=== PATIENT | male | born 1950 | race African-American/Black ===

== ENCOUNTER 2016-06-20 10:08 | Inpatient (IN) | payer MEDICARE, OTHER ==
[2016-06-20] VITALS (8 sets, daily range): BP systolic 130–159; BP diastolic 72–90; PULSE 62–93; RESP 15–20; TEMP 98.3; O2SAT 95–100
[~2016-06-20] VITALS: Ht 162.6 cm; Wt 55.0 kg
[~2016-06-20 10:08] MED LIST: ASPI81TA81; AZIT250T3 PO; ECOT81TA2 PO; PRED-503 PO; VENTAER INH
--- NOTE | 2016-06-20 11:29 | PD ---
HPI Chief Complaint: Neuro Symptoms/ Deficits Time Seen by Provider: 11:18 Travel History International Travel<30 days: No Contact w/Intl Traveler<30days: No Traveled to known affect area: No History of Present Illness HPI 65-year-old male with history of CVA 2, COPD presents by private vehicle with his daughter for evaluation. The daughter reports that the patient has been complaining that for the past 2 weeks he has had unsteady gait, diplopia in the right eye, some right-sided facial drooping. Specifically daughter says that he cannot seem to smile as symmetrical as usual. The daughter reports that she last saw him 2 weeks ago and he was at his baseline. She went to his prison today and found like this. He says that symptoms started 2 weeks ago. 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 He denies any headache, chest pain or shortness of breath, nausea or vomiting, abdominal pain, fevers or chills. His primary care physician is Dr. Perez. No other complaints. PFSH Past Medical History Hx Anticoagulant Therapy: Yes (81 MG ASA) Asthma: Yes Blood Disorders: No Anxiety: No Depression: No Heart Rhythm Problems: No Cancer: No Cardiovascular Problems: Yes High Cholesterol: No Chemotherapy: No Chest Pain: No Congestive Heart Failure: No COPD: No Cerebrovascular Accident: Yes (x2) Diminished Hearing: No Endocrine: No Gastrointestinal Disorders: No Genitourinary: No Hypertension: Yes Immune Disorder: No Musculoskeletal: No Neurologic: Yes (CVA) Psychiatric: No Reproductive: No Respiratory: Yes (ASTHMA) Radiation Therapy: No Sleep Apnea: No Thyroid Disease: No Tetanus Vaccination: Unknown ?: Not Past Surgical History Abdominal Surgery: Yes (HERNIA REPAIR) AICD: No Arteriovenous Shunt: No Insulin Pump: No Joint Replacement: No Pacemaker: No Other Surgery: Yes Social History Alcohol Use: No Tobacco Use: Yes Substance Use: No Allergies-Medications (Allergen,Severity, Reaction): Coded Allergies: EAR DROPS (Verified Allergy, Severe, RASH, 09/04/15) Reported Meds & Prescriptions Reported Meds & Active Scripts Active Ventolin Hfa 18 GM Inh (Albuterol Sulfate) 90 Mcg/Act Aer 2 Puff INH Q4-6H PRN Reported Multiple Vitamin 1 Tab 1 Tab PO DAILY Lisinopril 10 Mg Tab 10 Mg PO DAILY Aspirin 325 Mg Tab 325 Mg PO DAILY Review of Systems Except as stated in HPI: all other systems reviewed are Neg Physical Exam Narrative GENERAL: Well-developed well-nourished male in no acute distress alert and oriented SKIN: Warm and dry. HEAD: Atraumatic. Normocephalic. EYES: Pupils equal and round reactive to light extraocular muscles are intact. No scleral icterus. No injection or drainage. ENT: No nasal bleeding or discharge. Mucous membranes pink and moist. NECK: Trachea midline. No JVD. CARDIOVASCULAR: Regular rate and rhythm. No murmur appreciated. RESPIRATORY: No accessory muscle use. Clear to auscultation. Breath sounds equal bilaterally. GASTROINTESTINAL: Abdomen soft, non-tender, nondistended. Hepatic and splenic margins not palpable. MUSCULOSKELETAL: No obvious deformities. No clubbing. No cyanosis. No edema. NEUROLOGICAL: Awake and alert. Some facial asymmetry when smiling with some drooping on the right side, flattening of the nasolabial folds. No upper or lower extremity drift. Normal heel to kidd. The patient is able to stand with some assistance. He is unable to take more than one step without assistance. 4 out of 5 muscle strength in the right upper and lower extremity. 5 out of 5 muscle strength in the left upper and lower extremity. PSYCHIATRIC: Appropriate mood and affect; insight and judgment normal. Data Data Last Documented VS Vital Signs Date Time Temp Pulse Resp B/P Pulse Ox O2 Delivery O2 Flow Rate FiO2 06/20/16 12:15 66 15 130/72 100 06/20/16 11:15 Room Air 06/20/16 10:24 98.3 Orders Electrocardiogram (06/20/16 11:22) Prothrombin Time / Inr (Pt) (06/20/16 11:22) Act Partial Throm Time (Ptt) (06/20/16 11:22) Complete Blood Count With Diff (06/20/16 11:22) Comprehensive Metabolic Panel (06/20/16 11:22) Creatine Kinase (Cpk) (06/20/16 11:22) Troponin I (06/20/16 11:22) Ct Brain W/O Iv Contrast(Rout) (06/20/16 11:22) Ecg Monitoring (06/20/16 11:22) Iv Access Insert/Monitor (06/20/16 11:22) Admit Order (Ed Use Only) (06/20/16 13:04) Labs Laboratory Tests Test 06/20/16 11:27 White Blood Count 7.0 TH/MM3 Red Blood Count 4.49 MIL/MM3 Hemoglobin 14.9 GM/DL Hematocrit 43.1 % Mean Corpuscular Volume 96.1 FL Mean Corpuscular Hemoglobin 33.2 PG Mean Corpuscular Hemoglobin 34.6 % Concent Red Cell Distribution Width 13.5 % Platelet Count 175 TH/MM3 Mean Platelet Volume 8.2 FL Neutrophils (%) (Auto) 59.8 % Lymphocytes (%) (Auto) 20.3 % Monocytes (%) (Auto) 18.1 % Eosinophils (%) (Auto) 1.0 % Basophils (%) (Auto) 0.8 % Neutrophils # (Auto) 4.2 TH/MM3 Lymphocytes # (Auto) 1.4 TH/MM3 Monocytes # (Auto) 1.3 TH/MM3 Eosinophils # (Auto) 0.1 TH/MM3 Basophils # (Auto) 0.1 TH/MM3 CBC Comment DIFF FINAL Differential Comment Prothrombin Time 11.6 SEC Prothromb Time International 1.0 RATIO Ratio Activated Partial 29.2 SEC Thromboplast Time Sodium Level 139 MEQ/L Potassium Level 4.1 MEQ/L Chloride Level 102 MEQ/L Carbon Dioxide Level 27.8 MEQ/L Anion Gap 9 MEQ/L Blood Urea Nitrogen 17 MG/DL Creatinine 0.95 MG/DL Estimat Glomerular Filtration 96 ML/MIN Rate Random Glucose 92 MG/DL Calcium Level 8.6 MG/DL Total Bilirubin 0.7 MG/DL Aspartate Amino Transf 110 U/L (AST/SGOT) Alanine Aminotransferase 118 U/L (ALT/SGPT) Alkaline Phosphatase 95 U/L Total Creatine Kinase 186 U/L Troponin I LESS THAN 0.02 NG/ML Total Protein 8.0 GM/DL Albumin 3.4 GM/DL [facility] Medical Decision Making Medical Screen Exam Complete: Yes Emergency Medical Condition: Yes Medical Record Reviewed: Yes Interpretation(s) EKG sinus rhythm CT brain reveals old bilateral infarcts including basal ganglion right cerebellum. Chronic small vessel vasculopathy. CBC unremarkable CMP AST 110, ALT 118 Differential Diagnosis CVA, Young's palsy, hypoglycemia, electrolyte abnormality Narrative Course 65-year-old male with history of CVA in the past presents for evaluation of 2 weeks of unsteady gait, some double vision in the right eye, some right-sided facial droop. On examination he appears to have some flattening of the right nasolabial fold. He has 4-5 muscle strength in the right upper and lower extremity which is chronic. He is able to stand up independently however he is only able to walk about one-step without assistance. He says that he usually gets around in a scooter at his prison and he is able to walk wall holding onto the scooter. Examined with my attending agrees to plan of care. The patient will be admitted for observation given his new neurologic deficits. Diagnosis Primary Impression: Unsteady gait Additional Impression: Diplopia Admitting Information Admitting Physician Requests: Observation Liam Avila Jun 20, 2016 11:28
[2016-06-20 11:39] LABS: AUTOMATED NEUTROPHIL # 4.2 TH/MM3 (1.8-7.7); BASOPHIL # 0.1 TH/MM3 (0-0.2); BASOPHIL % 0.8 % (0.0-2.0); EOSINOPHIL # 0.1 TH/MM3 (0-0.4); HEMATOCRIT 43.1 % (39.0-51.0); HEMO FLAGS DIFF FINAL; LYMPH % 20.3 % (9.0-44.0); LYMPHOCYTE # 1.4 TH/MM3 (1.0-4.8); MEAN CELL VOLUME 96.1 FL (80.0-100.0); MEAN CORPUSCULAR HEMOGLOBIN 33.2 PG (27.0-34.0); MEAN CORPUSCULAR HGB CONC 34.6 % (32.0-36.0); MONO % 18.1 % (0.0-8.0); NEUT % 59.8 % (16.0-70.0); PLATELET COUNT 175 TH/MM3 (150-450); RED BLOOD COUNT 4.49 MIL/MM3 (4.50-5.90); RED CELL DISTRIBUTION WIDTH 13.5 % (11.6-17.2)
[2016-06-20 11:46] LABS: APTT (PATIENT) 29.2 SEC (24.3-30.1); PROTHROMBIN TIME - PATIENT 11.6 SEC (9.8-11.6)
[2016-06-20] MEDS ORDERED: ASPI325T PO (11:57)
[2016-06-20] MEDS ORDERED: LISI10TA3 PO (11:57)
[2016-06-20] MEDS ORDERED: MULTTAB67 PO (11:57)
[2016-06-20 12:02] LABS: ANION GAP 9 MEQ/L (5-15); AST (GOT) 110 U/L (15-37); BICARBONATE 27.8 MEQ/L (21.0-32.0); BLOOD UREA NITROGEN 17 MG/DL (7-18); CHLORIDE 102 MEQ/L (98-107); GLOMERULAR FILTRATION RATE 96 ML/MIN (>89); POTASSIUM 4.1 MEQ/L (3.5-5.1); SODIUM (NA) 139 MEQ/L (136-145)
--- NOTE | 2016-06-20 12:04 | RADRPT ---
EXAM DATE/TIME: 06/20/2016 11:38 [facility] COMPARISON: MRI BRAIN W/O CONTRAST, September 04, 2015, 15:55. INDICATIONS : Right facial droop for two weeks. RADIATION DOSE: 56.35 CTDIvol (mGy) MEDICAL HISTORY : Cardiovascular disease. Cerebrovascular disease. Hypertension. SURGICAL HISTORY : Hernia repair ENCOUNTER: Initial ACUITY: 2 weeks PAIN SCALE: 4/10 LOCATION: cranial TECHNIQUE: Multiple contiguous axial images were obtained of the head. Using automated exposure control and adj ustment of the mA and/or kV according to patient size, radiation dose was kept as low as reasonably a chievable to obtain optimal diagnostic quality images. FINDINGS: CEREBRUM: The ventricles are normal for age. Scattered areas of low attenuation in the periventricular white m atter. There are old bilateral basal ganglia lacunar infarcts. Old right cerebellar infarct. No evide nce of midline shift, mass lesion, hemorrhage or acute infarction. No extra-axial fluid collections are seen. POSTERIOR FOSSA: Right brainstem infarct, old. The 4th ventricle is midline. The cerebellopontine angle is unremarka ble. EXTRACRANIAL: The visualized portion of the orbits is intact. SKULL: The calvaria is intact. No evidence of skull fracture. CONCLUSION: 1. Old bilateral infarcts including basal ganglia and right cerebellum. 2. Chronic ischemic small vessel vasculopathy. Nelson Vargas MD on June 20, 2016 at 11:59 Board Certified Radiologist. This report was verified electronically.
[2016-06-20 12:06] LABS: ALKALINE PHOSPHATASE 95 U/L (45-117); ALT (GPT) 118 U/L (12-78); CREATINE KINASE 186 U/L (39-308); TOTAL BILIRUBIN ADULT 0.7 MG/DL (0.2-1.0)
[2016-06-20] MEDS ORDERED: ALBUTEROL SULFATE 90 MCG/ACT HFA 8 GM INHALER INH PRN (13:15)
--- NOTE | 2016-06-20 13:20 | HHI.HP ---
[facility] Yunior Perez MD Admission Diagnosis unsteady gait, diplopia, facial froop Diagnoses: (1) Unsteady gait Diagnosis: Principal (2) Diplopia Diagnosis: Principal Chief Complaint: ' I feel weak'. Travel History International Travel<30 Days: No Contact w/Intl Traveler <30 Da: No Traveled to Known Affected Are: No History of Present Illness patient is a 65 y/o male with history of CVA, hypertension and COPD who was brought from senior living because of right sided weakness and diplopia. he says that ' his right eye has been bothering him for the past two weeks'. he's complaining of right sided diplopia long with right sided weakness of the lower extremity. he denies any chest pain or sob. Review of Systems Constitutional: COMPLAINS OF: Fatigue, DENIES: Fever, Weight loss, Chills, Night Sweats Eyes: COMPLAINS OF: Diplopia, DENIES: Blurred vision, Vision loss, Double Vision Ears, nose, mouth, throat: DENIES: Tinnitus, Vertigo, Throat pain, Epistaxis Respiratory: DENIES: Apneas, Cough, Snoring, Wheezing, Hemoptysis, Sputum production, Shortness of breath Cardiovascular: DENIES: Chest pain, Palpitations, Syncope, Dyspnea on Exertion , PND, Lower Extremity Edema, Orthopnea, Claudication Gastrointestinal: DENIES: Abdominal pain, Black stools, Bloody stools, Constipation, Diarrhea, Nausea, Vomiting, Difficulty Swallowing, Anorexia Genitourinary: DENIES: Urinary frequency, Urgency, Hematuria, Dysuria Musculoskeletal: DENIES: Joint pain, Muscle aches, Stiffness, Joint Swelling Integumentary: DENIES: Rash Neurologic: COMPLAINS OF: Abnormal gait, DENIES: Headache, Localized weakness , Paresthesias, Seizures, Speech Problems, Tremor, Poor Balance Psychiatric: DENIES: Anxiety, Confusion, Mood changes, Depression, Hallucinations, Agitation, Suicidal Ideation, Homicidal Ideation, Delusions Past Family Social History Past Medical History CVA hypertension COPD Past Surgical History hernia repair Reported Medications Multiple Vitamin 1 Tab 1 Tab PO DAILY Lisinopril 10 Mg Tab 10 Mg PO DAILY Aspirin 325 Mg Tab 325 Mg PO DAILY Allergies: Coded Allergies: EAR DROPS (Verified Allergy, Severe, RASH, 09/04/15) Social History smokes a few cigarettes a day- senior living resident. Physical Exam Vital Signs Vital Signs Date Time Temp Pulse Resp B/P Pulse Ox O2 Delivery O2 Flow Rate FiO2 06/20/16 12:15 66 15 130/72 100 06/20/16 11:16 79 16 133/90 99 06/20/16 11:15 75 16 99 Room Air 06/20/16 10:24 98.3 93 16 157/84 95 Physical Exam GENERAL: in no apparent distress. SKIN: No rashes, ecchymoses or lesions. Cool and dry. HEAD: Atraumatic. Normocephalic. No temporal or scalp tenderness. EYES: Pupils equal round and reactive. Extraocular motions intact. No scleral icterus. No injection or drainage. ENT: Nose without bleeding, purulent drainage or septal hematoma. Throat without erythema, tonsillar hypertrophy or exudate. Uvula midline. Airway patent. NECK: Trachea midline. No JVD or lymphadenopathy. Supple, nontender, no meningeal signs. CARDIOVASCULAR: Regular rate and rhythm without murmurs, gallops, or rubs. RESPIRATORY: Clear to auscultation. Breath sounds equal bilaterally. No wheezes , rales, or rhonchi. GASTROINTESTINAL: Abdomen soft, non-tender, nondistended. No hepato-splenomegaly , or palpable masses. No guarding. MUSCULOSKELETAL: Extremities without clubbing, cyanosis, or edema. No joint tenderness, effusion, or edema noted. No calf tenderness. Negative Homans sign bilaterally. NEUROLOGICAL: Awake and alert. Cranial nerves II through XII intact. Motor and sensory grossly within normal limits. mild right lower extremity weakness. Laboratory Laboratory Tests Test 06/20/16 11:27 White Blood Count 7.0 Red Blood Count 4.49 Hemoglobin 14.9 Hematocrit 43.1 Mean Corpuscular Volume 96.1 Mean Corpuscular Hemoglobin 33.2 Mean Corpuscular Hemoglobin 34.6 Concent Red Cell Distribution Width 13.5 Platelet Count 175 Mean Platelet Volume 8.2 Neutrophils (%) (Auto) 59.8 Lymphocytes (%) (Auto) 20.3 Monocytes (%) (Auto) 18.1 Eosinophils (%) (Auto) 1.0 Basophils (%) (Auto) 0.8 Neutrophils # (Auto) 4.2 Lymphocytes # (Auto) 1.4 Monocytes # (Auto) 1.3 Eosinophils # (Auto) 0.1 Basophils # (Auto) 0.1 CBC Comment DIFF FINAL Differential Comment Prothrombin Time 11.6 Prothromb Time International 1.0 Ratio Activated Partial 29.2 Thromboplast Time Sodium Level 139 Potassium Level 4.1 Chloride Level 102 Carbon Dioxide Level 27.8 Anion Gap 9 Blood Urea Nitrogen 17 Creatinine 0.95 Estimat Glomerular Filtration 96 Rate Random Glucose 92 Calcium Level 8.6 Total Bilirubin 0.7 Aspartate Amino Transf 110 (AST/SGOT) Alanine Aminotransferase 118 (ALT/SGPT) Alkaline Phosphatase 95 Total Creatine Kinase 186 Troponin I LESS THAN 0.02 Total Protein 8.0 Albumin 3.4 Result Diagram: 06/20/16 1127 06/20/16 1127 Imaging Last Impressions Head CT 06/20/16 1122 Signed Impressions: Service Date/Time: Monday, June 20, 2016 11:38 - CONCLUSION: 1. Old bilateral infarcts including basal ganglia and right cerebellum. 2. Chronic ischemic small vessel vasculopathy. Nelson Vargas MD EKG; sinus rhythm with no acute ST-T changes. Assessment and Plan Assessment and Plan A/P - diplopia and unsteady gait with history of CVA monitor on telemetry- neuro checks- resume aspirin. consult neurology along with PT/ST check carotid doppler and echo. -hypertension; hold home meds for now- will monitor -COPD; albuterol as needed -elevated LFT's- chronic- f/u as outpatient. -DVT prophylaxis with SCD's Discussed Condition With ER physician and the patient. Alberto Cm MD Jun 20, 2016 13:20
[2016-06-20] MEDS: SODIUM CHLOR 0.9% 1000 ML INJ 1,000 ML IV SCH (14:24)
--- NOTE | 2016-06-20 14:57 | RADRPT ---
EXAM DATE/TIME: 06/20/2016 13:56 [facility] COMPARISON: No previous studies available for comparison. INDICATIONS : Transischemic attack. MEDICAL HISTORY : Hypertension. Chronic obstructive pulmonary disease. CVA. SURGICAL HISTORY : Hernia. ENCOUNTER: Initial ACUITY: 2 weeks PAIN SCORE: 0/10 LOCATION: Bilateral neck PEAK SYSTOLIC VELOCITIES (cm/sec): ICA/CCA RATIO: Right: 1.7 Left: 0.7 ICA: Right: 83 Left: 65 CCA: Right: 48 Left: 98 ECA: Right: 43 Left: 66 VERTEBRAL: Right: 48 antegrade Left: 58 antegrade Elevated flow velocities and ICA/CCA ratios have been found to correlate with increased degrees of vessel stenosis, calculated as percentage of diameter relative to a normal segment of distal ICA/CCA FINDINGS: RIGHT CAROTID: No significant stenosis is visualized. The waveforms are within normal limits. LEFT CAROTID: No significant stenosis is visualized. The waveforms are within normal limits. VERTEBRAL ARTERIES: Antegrade flow is seen in both vertebral arteries. MISCELLANEOUS: None. CONCLUSION: No evidence of significant atherosclerotic vascular disease or hemodynamically signif icant stenosis. Antegrade flow both vertebral arteries. Carmelo Garcia MD on June 20, 2016 at 14:55 Board Certified Radiologist. This report was verified electronically.
--- NOTE | 2016-06-20 16:52 | EC ---
Study Study Date:06/20/2016 STUDY CONCLUSIONS SUMMARY - Left ventricle: The cavity size was normal. Wall thickness was normal. Systolic function was normal. The estimated ejection fraction was in the range of 60% to 65%. Wall motion was normal; there were no regional wall motion abnormalities. - Aortic valve: Trace regurgitation. Valve area: 2.5cm^2 (Vmax). - Tricuspid valve: Mild regurgitation. If LV function is below 40, please consider prescribing an ACEI or ARB or document rationale for non-use. PROCEDURE DATA STUDY STATUS: Elective. Procedure: Transthoracic echocardiography. Image quality was good. Scanning was performed from the parasternal, apical, and subcostal acoustic windows. Study completion: The patient tolerated the procedure well. Transthoracic echocardiography. M-mode, complete 2D, complete spectral Doppler, and color Doppler. Height: Height: 64in. Weight: Weight: 120.7lb. Body mass index: BMI: 20.8kg/m^2. Body surface area: BSA: 1.58m^2. Patient status: Inpatient. CARDIAC ANATOMY LEFT VENTRICLE: The cavity size was normal. Wall thickness was normal. Systolic function was normal. The estimated ejection fraction was in the range of 60% to 65%. Wall motion was normal; there were no regional wall motion abnormalities. AORTIC VALVE: Trileaflet; normal thickness leaflets. Doppler: Transvalvular velocity was within the normal range. There was no stenosis. Trace regurgitation. Valve area: 2.5cm^2 (Vmax). Indexed valve area: 1.58cm^2/m^2 (Vmax). AORTA: Aortic root: The aortic root was normal in size. MITRAL VALVE: Structurally normal valve. Doppler: Transvalvular velocity was within the normal range. There was no evidence for stenosis. No regurgitation. LEFT ATRIUM: The atrium was normal in size. RIGHT VENTRICLE: The cavity size was normal. Wall thickness was normal. PULMONIC VALVE: Doppler: Transvalvular velocity was within the normal range. There was no evidence for stenosis. No regurgitation. TRICUSPID VALVE: Structurally normal valve. Doppler: Transvalvular velocity was within the normal range. Mild regurgitation. PULMONARY ARTERY: The main pulmonary artery was normal-sized. Systolic pressure was within the normal range. RIGHT ATRIUM: The atrium was normal in size. PERICARDIUM: There was no pericardial effusion. SYSTEMIC VEINS: Inferior vena cava: The vessel was normal in size. Patient weight: 120.7lb _Ejection fraction:_ 65-75% _Fractional shortening:_ 32% up to 5Kg 5-11.5Kg 11.6-22.9Kg 23-45Kg 45-57Kg Aortic Root 7-13 <17 13-22 17-27 17-27 LA diam 6-13 <23 24-38 33-47 37-40 RVID 10-17 7-15 7-15 7-18 8-17 LVIDd 12-22 <32 24-38 33-47 37-40 LVPW 2-4 3-6 5-7 6-8 7-8 IVS 2-4 3-6 5-7 6-8 7-8 BASIC MEASUREMENTS ADULT NORMAL Left ventricle LV internal dimension, ED, chordal *41.5 mm 43-52 level, PLAX LV internal dimension, ES, chordal 30.1 mm 23-38 level, PLAX Fractional shortening, chordal level, *27 % >29 PLAX LV posterior wall thickness, ED 8.28 mm IVS/LVPW ratio, ED 1.14 <1.3 Ventricular septum Septal thickness, ED 9.44 mm Aortic valve Leaflet separation 19 mm 15-26 BASIC MEASUREMENTS ADULT NORMAL Aortic valve Leaflet separation 19 mm 15-26 Aorta Root diameter, ED 20 mm 20-37 Left atrium Anterior-posterior dimension, ES 24 mm 19-40 Anterior-posterior dimension index, ES 1.52 cm/m^2 <2.2 LA/aortic root ratio 1.2 DOPPLER MEASUREMENTS ADULT NORMAL Main pulmonary artery Pressure, S 30 mm Hg =30 Pressure, ED 17 mm Hg Aortic valve Peak velocity, S 117 cm/s Valve area, Vmax 2.5 cm^2 Valve area index, Vmax 1.58 cm^2/m^2 Regurgitant velocity, ED 350 cm/s Regurgitant deceleration 364 cm/s^2 Regurgitant pressure half-time 2820 ms Regurgitant gradient, ED 49 mm Hg Mitral valve Peak E-wave velocity 63.7 cm/s Peak A-wave velocity 79 cm/s Deceleration time 222 ms 150-230 Peak E/A ratio 0.8 Tricuspid valve Regurgitant peak velocity 236 cm/s Peak RV-RA gradient, S 22 mm Hg Maximal regurgitant velocity 236 cm/s Systemic veins Estimated CVP 10 mm Hg Right ventricle RV pressure, S *33 mm Hg <30 Pulmonic valve Peak velocity, S 89.6 cm/s Regurgitant velocity, ED 129 cm/s LEGEND: Mean values are shown as u=mean value. Asterisk (*) jackson values outside specified normal range. Prepared and signed by Francisco Nicole [id number]
[2016-06-20] MEDS ORDERED: GADODIAMIDE PF 287 MG/ML 10 ML VIAL (for RAD MRI) IV ONE (18:49)
--- NOTE | 2016-06-20 19:00 | RADRPT ---
EXAM DATE/TIME: 06/20/2016 18:17 [facility] COMPARISON: MRI BRAIN W/O CONTRAST, September 04, 2015, 15:55. CT BRAIN W/O CONTRAST, June 20, 2016, 11:38. INDICATIONS : Unsteady gait. Right facial droop CONTRAST: 10 cc Omniscan (gadodiamide) IV MEDICAL HISTORY : Chronic obstructive pulmonary disease. CVAs SURGICAL HISTORY : Tonsillectomy. Inguinal hernia repair. ENCOUNTER: Initial ACUITY: 2 weeks PAIN SCORE: 0/10 LOCATION: cranial TECHNIQUE: Multiplanar, multisequence MRI of the brain was performed both prior to and following the administrat ion of paramagnetic contrast. FINDINGS: CEREBRUM: The ventricles are normal for age. No evidence of midline shift, mass lesion, hemorrhage or acute in farction. No extraaxial fluid collections are seen. The pituitary gland and suprasellar cistern are normal in configuration. WHITE MATTER: Moderate severity chronic periventricular white matter flair signal abnormality again noted. There ar e old periventricular and left basal ganglia lacunar infarcts. POSTERIOR FOSSA: The cerebellum and brainstem are intact. 8 mm old lacunar infarct of the right side of the heaven agai n noted. The 4th ventricle is midline. The cerebellopontine angle is unremarkable. The cerebellar to nsils are normal in position. DIFFUSION IMAGIN x 26 mm focus of restricted diffusion seen in the right basal ganglia, low-attenuation on the comp arison CT compatible with a subacute infarct. EXTRACRANIAL: The visualized portions of the orbits and paranasal sinuses are unremarkable. POST-CONTRAST: No abnormal areas of parenchymal or dural enhancement. No evidence of blood-brain barrier breakdown. CONCLUSION: 1. There is a 13 x 26 mm subacute infarct of the right basal ganglia. 2. Otherwise chronic white matter and basal ganglia ischemic changes. Also an old, unchanged lacunar infarct of the right side of the heaven. Yunior Harris MD on June 20, 2016 at 18:55 Board Certified Radiologist. This report was verified electronically.
[2016-06-21] VITALS (10 sets, daily range): BP systolic 114–176; BP diastolic 67–89; PULSE 56–79; RESP 18–20; TEMP 97.6–98.4; O2SAT 95–100
[2016-06-21] MEDS: SODIUM CHLOR 0.9% 1000 ML INJ 1,000 ML IV SCH ×3 (04:35→20:00)
--- NOTE | 2016-06-21 06:05 | MB ---
cc: ROSENDO FORTUNE DATE OF CONSULTATION 06/20/2016 REASON FOR CONSULTATION TIA/stroke. HISTORY OF PRESENT ILLNESS Mr. Trammell is a 65-year-old -[place] male with past medical history of stroke with residual right-sided lower extremity weakness and mild slurring of speech, hypertension, COPD, who resides in a skilled nursing from where he was brought to the emergency room at [facility] because of right-sided weakness and double vision as well as mild slurring and sensation. The patient uses a walker at baseline for stability. The patient is on aspirin 81 mg daily. The patient denies headache, weakness of arm, disorientation, convulsions or loss of consciousness. REVIEW OF SYSTEMS A 12-point review of systems is negative except what is stated in the HPI. PAST MEDICAL HISTORY 1. Stroke with residual right lower extremity weakness and slurred speech. 2. Hypertension. 3. COPD. PAST SURGICAL HISTORY Hernia repair. ALLERGIES EAR DROPS. SOCIAL HISTORY Smokes a few cigarettes per day. Denies history of alcohol and illicit drug abuse. FAMILY HISTORY Noncontributory. PHYSICAL EXAMINATION GENERAL: Awake, alert, good historian, not in acute distress. HEENT: Atraumatic, normocephalic. Intact hearing. Intact vision. NECK: Trachea in the midline. No signs of meningeal irritation. No carotid bruit. CARDIOVASCULAR: Regular rate and rhythm. RESPIRATORY: Clear to auscultation. No wheezes. MUSCULOSKELETAL: Extremities without clubbing, cyanosis or edema. Moves all extremities equally. Neurologic: Awake, alert, oriented to time, person and place. Intact memory. Mild slurring of speech, questionable chronic. Intact external ocular motility. Pupils are 2 mm bilaterally, reacting to light. Diminished facial sensation on the right side. No facial asymmetry. Upper extremities 5/5 bilateral, symmetrical. No abnormal movement. Normal tone. Bilateral lower extremity 5/5. No other movement. No abnormal tone. Sensation is diminished on the right upper and lower extremity compared to the left side to both temperature and touch. [id number] and ijee-ur-lvig are bilaterally intact. DIAGNOSTIC IMAGING - Head CT scan with old bilateral infarcts including basal ganglia and right cerebellar. Chronic small ischemic vessel vasculopathy. - Carotid ultrasound - No evidence of significant atherosclerotic vascular disease or hemodynamically significant stenosis. Antegrade flow for both vertebral arteries. - Echo with ejection fraction of 60-65%. No wall motion abnormality. - MRI - There is a 12 by 26-mm subacute infarct of the right basal ganglia, otherwise chronic white matter and basal ganglia ischemic and an old unchanged lacunar infarct of the right side of the heaven. DIAGNOSTIC IMPRESSION 1. Subacute ischemic stroke in the right basal ganglia. 2. Remote lacunar infarct on the right side of the heaven. 3. History of stroke with mild right lower extremity residual weakness. PLAN 1. Neuro checks q. 4 hours. 2. Aspirin 325 mg daily. 3. Telemetry. 4. PT and OT recommendations are appreciated. 5. SCD prophylaxis. Thank you for the opportunity to participate in the care of your patient. MD KISHA Sinha/DANIEL /10:22 PM /5:40 AM EMILY
[2016-06-21] MEDS ORDERED: INFLUENZA VIRUS VACCINE (QUADRIVALENT) 0.5 ML SYR IM ONE (10:00)
[2016-06-21] MEDS ORDERED: PNEUMOCOCCAL POLYVALENT INJ 25 MCG/0.5 ML SYR IM ONE (10:00)
[2016-06-21] MEDS: ASPIRIN 325 MG TAB PO SCH (10:23)
--- NOTE | 2016-06-21 12:46 | HHI.PR ---
Subjective Remarks denies pain. no new complaints. Objective Vitals Vital Signs Date Time Temp Pulse Resp B/P Pulse Ox O2 Delivery O2 Flow Rate FiO2 06/21/16 11:35 98.0 60 18 176/83 99 06/21/16 08:16 98.4 58 19 154/75 98 06/21/16 04:10 97.6 58 20 114/67 95 06/21/16 00:55 79 06/21/16 00:19 97.6 67 20 137/69 98 06/20/16 19:25 98.3 62 20 135/76 95 06/20/16 17:06 67 18 159/83 99 06/20/16 16:20 70 06/20/16 16:07 68 16 152/81 97 06/20/16 14:24 68 15 140/77 98 I/O 06/20/16 06/20/16 06/20/16 06/21/16 06/21/16 06/21/16 07:00 15:00 23:00 07:00 15:00 23:00 Output Total 200 ml Balance -200 ml Output Urine Total 200 ml # Voids 1 Result Diagram: 06/20/16 1127 06/20/16 1127 Imaging Last Impressions Head CT 06/20/16 1122 Signed Impressions: Service Date/Time: Monday, June 20, 2016 11:38 - CONCLUSION: 1. Old bilateral infarcts including basal ganglia and right cerebellum. 2. Chronic ischemic small vessel vasculopathy. Nelson Vargas MD Carotid Artery Ultrasound 06/20/16 0000 Signed Impressions: Service Date/Time: Monday, June 20, 2016 13:56 - CONCLUSION: No evidence of significant atherosclerotic vascular disease or hemodynamically significant stenosis. Antegrade flow both vertebral arteries. Carmelo Garcia MD Brain MRI 06/20/16 0000 Signed Impressions: Service Date/Time: Monday, June 20, 2016 18:17 - CONCLUSION: 1. There is a 13 x 26 mm subacute infarct of the right basal ganglia. 2. Otherwise chronic white matter and basal ganglia ischemic changes. Also an old, unchanged lacunar infarct of the right side of the heaven. Yunior Harris MD Objective Remarks GENERAL: This is a well-nourished, well-developed patient, in no apparent distress. CARDIOVASCULAR: Regular rate and regular rhythm without murmurs, gallops, or rubs. RESPIRATORY: Clear to auscultation. Breath sounds equal bilaterally. No wheezes , rales, or rhonchi. GASTROINTESTINAL: Abdomen soft, non-tender, nondistended. Normal, active bowel sounds MUSCULOSKELETAL: Extremities without clubbing, cyanosis, or edema. NEURO: Alert & Oriented x4 to person, place, time, situation. right sided weakness Procedures none Medications and IVs Current Medications Sodium Chloride (NS 1000 ml Inj) 1,000 ml @ 100 mls/hr Q10H IV Last administered on 06/21/16 10:19; Start 06/20/16 at 14:00 Albuterol Sulfate (Proair Hfa Inh) 2 puff Q6H PRN INH SHORTNESS OF BREATH; Start 06/20/16 at 13:15 Aspirin (Aspirin) 325 mg DAILY PO Last administered on 06/21/16 10:23; Start at 09:00 Gadodiamide (Omniscan Pf Inj) 10 ml STK-MED ONCE IV Last administered on 18:49; Start 06/20/16 at 18:49; Stop 06/20/16 at 18:50; Status DC Pneumococcal Polyvalent Vaccine (Pneumovax-23 Inj) 25 mcg ONCE ONCE IM Last administered on 06/21/16 10:23; Start 06/21/16 at 10:00; Stop 06/21/16 at 10:01; Status DC Influenza Virus Vaccine (Flu (Quadrivalent) Vaccine Inj) 0.5 ml ONCE ONCE IM Last administered on 06/21/16 10:21; Start 06/21/16 at 10:00; Stop 06/21/16 at 10: 01; Status DC A/P Assessment and Plan - subacute basal ganglia infarct monitor on telemetry- neuro checks- resumed aspirin. consult neurology along with PT/ST carotid doppler with no significant stenosis- echo with EF 60% and no regional wall motion abnormalities. -hypertension; hold home meds for now- will monitor -COPD; albuterol as needed -elevated LFT's- chronic- f/u as outpatient. -DVT prophylaxis with SCD's Discharge Planning dc to SNF in am if stable. Alberto Cm MD Jun 21, 2016 12:45
--- NOTE | 2016-06-21 12:47 | HHI.DCPOC ---
Discharge Care Plan Diagnosis: (1) subacute cva Your Health Problems Are: Difficulty with ADL Goals to Promote Your Health * To prevent worsening of your condition and complications * To maintain your health at the optimal level Directions to Meet Your Goals Take your medications as prescribed Follow your dietary instruction Follow activity as directed Keep your appointments as scheduled Take your immunizations and boosters as scheduled If your symptoms worsen call your PCP, if no PCP go to Urgent Care Center or Emergency Room Smoking is Dangerous to Your Health. Avoid second hand smoke Call the 24-hour hour crisis hotline for domestic abuse at Alberto Cm MD Jun 21, 2016 12:47
--- NOTE | 2016-06-21 18:51 | EKG ---
Date Performed: 06/20/2016 Time Performed: 11:39:01 PTAGE: 65 years EKG: Sinus rhythm NORMAL ECG PREVIOUS TRACING : 03/24/2016 01.46 DOCTOR: Francisco Nicole Interpretating Date/Time 06/21/2016 18:45:24
[2016-06-22] VITALS (7 sets, daily range): BP systolic 146–170; BP diastolic 76–89; PULSE 54–83; RESP 18–20; TEMP 97.6–98.7; O2SAT 94–97
[2016-06-22] MEDS: SODIUM CHLOR 0.9% 1000 ML INJ 1,000 ML IV SCH ×2 (05:12→16:00)
[2016-06-22] MEDS: ASPIRIN 325 MG TAB PO SCH (08:38)
--- NOTE | 2016-06-22 11:14 | HHI.PR ---
Subjective Remarks in no acute distress. no new complaints. Objective Vitals Vital Signs Date Time Temp Pulse Resp B/P Pulse Ox O2 Delivery O2 Flow Rate FiO2 06/22/16 08:27 97.8 54 18 149/76 95 06/22/16 08:15 63 06/22/16 04:18 97.6 83 20 159/89 95 06/21/16 23:36 97.6 59 20 151/80 95 06/21/16 19:26 97.6 62 20 158/89 96 06/21/16 18:16 57 06/21/16 15:16 62 19 165/79 100 06/21/16 11:35 98.0 60 18 176/83 99 I/O 06/21/16 06/21/16 06/21/16 06/22/16 06/22/16 06/22/16 07:00 15:00 23:00 07:00 15:00 23:00 Intake Total 600 ml Output Total 200 ml 100 ml 200 ml Balance -200 ml -100 ml -200 ml 600 ml Intake Oral 300 ml IV Total 300 ml Output Urine Total 200 ml 100 ml 200 ml # Voids 1 4 2 Result Diagram: 06/20/16 1127 06/20/16 1127 Imaging Last Impressions Head CT 06/20/16 1122 Signed Impressions: Service Date/Time: Monday, June 20, 2016 11:38 - CONCLUSION: 1. Old bilateral infarcts including basal ganglia and right cerebellum. 2. Chronic ischemic small vessel vasculopathy. Nelson Vargas MD Carotid Artery Ultrasound 06/20/16 0000 Signed Impressions: Service Date/Time: Monday, June 20, 2016 13:56 - CONCLUSION: No evidence of significant atherosclerotic vascular disease or hemodynamically significant stenosis. Antegrade flow both vertebral arteries. Carmelo Garcia MD Brain MRI 06/20/16 0000 Signed Impressions: Service Date/Time: Monday, June 20, 2016 18:17 - CONCLUSION: 1. There is a 13 x 26 mm subacute infarct of the right basal ganglia. 2. Otherwise chronic white matter and basal ganglia ischemic changes. Also an old, unchanged lacunar infarct of the right side of the heaven. Yunior Harris MD Objective Remarks GENERAL: This is a well-nourished, well-developed patient, in no apparent distress. CARDIOVASCULAR: Regular rate and regular rhythm without murmurs, gallops, or rubs. RESPIRATORY: Clear to auscultation. Breath sounds equal bilaterally. No wheezes , rales, or rhonchi. GASTROINTESTINAL: Abdomen soft, non-tender, nondistended. Normal, active bowel sounds MUSCULOSKELETAL: Extremities without clubbing, cyanosis, or edema. NEURO: Alert & Oriented x4 to person, place, time, situation. right sided weakness Procedures none Medications and IVs Current Medications Sodium Chloride (NS 1000 ml Inj) 1,000 ml @ 100 mls/hr Q10H IV Last administered on 06/22/16 05:12; Start 06/20/16 at 14:00 Albuterol Sulfate (Proair Hfa Inh) 2 puff Q6H PRN INH SHORTNESS OF BREATH; Start 06/20/16 at 13:15 Aspirin (Aspirin) 325 mg DAILY PO Last administered on 06/22/16 08:38; Start at 09:00 Gadodiamide (Omniscan Pf Inj) 10 ml STK-MED ONCE IV Last administered on 18:49; Start 06/20/16 at 18:49; Stop 06/20/16 at 18:50; Status DC Pneumococcal Polyvalent Vaccine (Pneumovax-23 Inj) 25 mcg ONCE ONCE IM Last administered on 06/21/16 10:23; Start 06/21/16 at 10:00; Stop 06/21/16 at 10:01; Status DC Influenza Virus Vaccine (Flu (Quadrivalent) Vaccine Inj) 0.5 ml ONCE ONCE IM Last administered on 06/21/16 10:21; Start 06/21/16 at 10:00; Stop 06/21/16 at 10: 01; Status DC A/P Assessment and Plan - subacute basal ganglia infarct monitor on telemetry- neuro checks- resumed aspirin. no statin at this time due to elevated LFT's. d/w and was cleared for discharge. carotid doppler with no significant stenosis- echo with EF 60% and no regional wall motion abnormalities. -hypertension;resume home meds. -COPD; albuterol as needed -elevated LFT's- chronic- f/u as outpatient. -DVT prophylaxis with SCD's Discharge Planning dc to SNF today. see med list. f/u; pcp and neurology. d/w the patient. Alberto Cm MD Jun 22, 2016 11:14
--- NOTE | 2016-06-22 11:16 | HHI.DS ---
Discharge Summary Admission Date Jun 20, 2016 at 16:20 Discharge Date: Jun 22, 2016 Admitting Diagnosis unsteady gait, diplopia, facial froop (1) Unsteady gait ICD Code: R26.81 Diagnosis: Principal (2) Diplopia ICD Code: H53.2 Diagnosis: Principal Procedures none Brief History - From Admission patient is a 65 y/o male with history of CVA, hypertension and COPD who was brought from long-term because of right sided weakness and diplopia. he says that ' his right eye has been bothering him for the past two weeks'. he's complaining of right sided diplopia long with right sided weakness of the lower extremity. he denies any chest pain or sob. CBC/BMP: 06/20/16 1127 06/20/16 1127 Significant Findings Laboratory Tests Test 06/20/16 11:27 Red Blood Count 4.49 MIL/MM3 (4.50-5.90) Monocytes (%) (Auto) 18.1 % (0.0-8.0) Monocytes # (Auto) 1.3 TH/MM3 (0-0.9) Aspartate Amino Transf 110 U/L (15-37) (AST/SGOT) Alanine Aminotransferase 118 U/L (12-78) (ALT/SGPT) Troponin I LESS THAN 0.02 NG/ML (0.02-0.05) Imaging Last Impressions Head CT 06/20/16 1122 Signed Impressions: Service Date/Time: Monday, June 20, 2016 11:38 - CONCLUSION: 1. Old bilateral infarcts including basal ganglia and right cerebellum. 2. Chronic ischemic small vessel vasculopathy. Nelson Vargas MD Carotid Artery Ultrasound 06/20/16 0000 Signed Impressions: Service Date/Time: Monday, June 20, 2016 13:56 - CONCLUSION: No evidence of significant atherosclerotic vascular disease or hemodynamically significant stenosis. Antegrade flow both vertebral arteries. Carmelo Garcia MD Brain MRI 06/20/16 0000 Signed Impressions: Service Date/Time: Monday, June 20, 2016 18:17 - CONCLUSION: 1. There is a 13 x 26 mm subacute infarct of the right basal ganglia. 2. Otherwise chronic white matter and basal ganglia ischemic changes. Also an old, unchanged lacunar infarct of the right side of the heaven. Yunior Harris MD PE at Discharge GENERAL: This is a well-nourished, well-developed patient, in no apparent distress. CARDIOVASCULAR: Regular rate and regular rhythm without murmurs, gallops, or rubs. RESPIRATORY: Clear to auscultation. Breath sounds equal bilaterally. No wheezes , rales, or rhonchi. GASTROINTESTINAL: Abdomen soft, non-tender, nondistended. Normal, active bowel sounds MUSCULOSKELETAL: Extremities without clubbing, cyanosis, or edema. NEURO: Alert & Oriented x4 to person, place, time, situation. right sided weakness Hospital Course - subacute basal ganglia infarct monitor on telemetry- neuro checks- resumed aspirin. no statin at this time due to elevated LFT's. d/w and was cleared for discharge. carotid doppler with no significant stenosis- echo with EF 60% and no regional wall motion abnormalities. -hypertension;resume home meds. -COPD; albuterol as needed -elevated LFT's- chronic- f/u as outpatient. -DVT prophylaxis with SCD's Pt Condition on Discharge: Fair Discharge Disposition: Discharge to SNF Discharge Time: <= 30 minutes Discharge Instructions DIET: Follow Instructions for: Heart Healthy Diet Speech Therapy-Diet Recommends: Mechanical Soft Activities you can perform: Regular-No Restrictions Follow up Referrals: Neurology PCP Follow-up Continued Medications: Albuterol 18 GM Inh (Ventolin Hfa 18 GM Inh) 90 Mcg/Act Aer 2 PUFF INH Q4-6H PRN SHORTNESS OF BREATH #1 INHALER Aspirin (Aspirin) 325 Mg Tab 325 MG PO DAILY #30 Ref 0 TAB Lisinopril (Lisinopril) 10 Mg Tab 10 MG PO DAILY #30 Ref 0 TAB Multiple Vitamin (Multiple Vitamin) 1 Tab 1 TAB PO DAILY Nutritional Supplement Ref 0 TAB Alberto Cm MD Jun 22, 2016 11:16
[2016-06-23] MEDS: SODIUM CHLOR 0.9% 1000 ML INJ 1,000 ML IV SCH (00:53)
--- NOTE | 2016-06-23 08:00 | HHI.PR ---
Subjective Remarks resting comfortably with no distress. denies pain. d/w the RN and no acute issues over night. Objective Vitals Vital Signs Date Time Temp Pulse Resp B/P Pulse Ox O2 Delivery O2 Flow Rate FiO2 06/22/16 20:26 98.7 60 18 150/79 97 06/22/16 16:03 62 18 150/84 94 06/22/16 11:32 65 18 170/84 95 06/22/16 11:27 68 18 146/82 95 06/22/16 08:27 97.8 54 18 149/76 95 06/22/16 08:15 63 I/O 06/22/16 06/22/16 06/22/16 06/23/16 06/23/16 06/23/16 07:00 15:00 23:00 07:00 15:00 23:00 Intake Total 600 ml 700 ml Balance 600 ml 700 ml Intake Oral 300 ml 400 ml IV Total 300 ml 300 ml # Voids 4 2 1 # Bowel Movements 1 Result Diagram: 06/20/16 1127 06/20/16 1127 Imaging Last Impressions Head CT 06/20/16 1122 Signed Impressions: Service Date/Time: Monday, June 20, 2016 11:38 - CONCLUSION: 1. Old bilateral infarcts including basal ganglia and right cerebellum. 2. Chronic ischemic small vessel vasculopathy. Nelson Vargas MD Carotid Artery Ultrasound 06/20/16 0000 Signed Impressions: Service Date/Time: Monday, June 20, 2016 13:56 - CONCLUSION: No evidence of significant atherosclerotic vascular disease or hemodynamically significant stenosis. Antegrade flow both vertebral arteries. Carmelo Garcia MD Brain MRI 06/20/16 0000 Signed Impressions: Service Date/Time: Monday, June 20, 2016 18:17 - CONCLUSION: 1. There is a 13 x 26 mm subacute infarct of the right basal ganglia. 2. Otherwise chronic white matter and basal ganglia ischemic changes. Also an old, unchanged lacunar infarct of the right side of the heaven. Yunior Harris MD Objective Remarks GENERAL: This is a well-nourished, well-developed patient, in no apparent distress. CARDIOVASCULAR: Regular rate and regular rhythm without murmurs, gallops, or rubs. RESPIRATORY: Clear to auscultation. Breath sounds equal bilaterally. No wheezes , rales, or rhonchi. GASTROINTESTINAL: Abdomen soft, non-tender, nondistended. Normal, active bowel sounds MUSCULOSKELETAL: Extremities without clubbing, cyanosis, or edema. NEURO: Alert & Oriented x4 to person, place, time, situation. right sided weakness Procedures none Medications and IVs Current Medications Sodium Chloride (NS 1000 ml Inj) 1,000 ml @ 100 mls/hr Q10H IV Last administered on 06/22/16 05:12; Start 06/20/16 at 14:00 Albuterol Sulfate (Proair Hfa Inh) 2 puff Q6H PRN INH SHORTNESS OF BREATH; Start 06/20/16 at 13:15 Aspirin (Aspirin) 325 mg DAILY PO Last administered on 06/22/16 08:38; Start at 09:00 Gadodiamide (Omniscan Pf Inj) 10 ml STK-MED ONCE IV Last administered on 18:49; Start 06/20/16 at 18:49; Stop 06/20/16 at 18:50; Status DC Pneumococcal Polyvalent Vaccine (Pneumovax-23 Inj) 25 mcg ONCE ONCE IM Last administered on 06/21/16 10:23; Start 06/21/16 at 10:00; Stop 06/21/16 at 10:01; Status DC Influenza Virus Vaccine (Flu (Quadrivalent) Vaccine Inj) 0.5 ml ONCE ONCE IM Last administered on 06/21/16 10:21; Start 06/21/16 at 10:00; Stop 06/21/16 at 10: 01; Status DC A/P Assessment and Plan - subacute basal ganglia infarct monitor on telemetry- neuro checks- resumed aspirin. no statin at this time due to elevated LFT's. previously d/w and was cleared for discharge. carotid doppler with no significant stenosis- echo with EF 60% and no regional wall motion abnormalities. -hypertension;resumed home meds. -COPD; albuterol as needed -elevated LFT's- chronic- f/u as outpatient. -DVT prophylaxis with SCD's Discharge Planning dc to SNF today. see med list. f/u; pcp and neurology. d/w the patient. d/w the Alberto Mccullough MD Jun 23, 2016 08:00
[2016-06-23 08:55] VITALS: BP 139/81; PULSE 58; RESP 20; TEMP 97.9; O2SAT 97
[2016-06-23] MEDS ORDERED: LISINOPRIL 10 MG TAB PO SCH (09:00)
[2016-06-23] MEDS: ASPIRIN 325 MG TAB PO SCH (09:05)
== END 2016-06-23 12:14 | DRG 66 ==
LOC: NEPE 10:08 → NEDA 13:06 → OBSVTOIN 16:20 → NEPHCDU 16:28
PROVIDERS: ADMIT Internal Medicine; ATTEND Internal Medicine
DX: I63.9 Cerebral infarction, unspecified (principal); J44.9 Chronic obstructive pulmonary disease, unspecified; I69.320 Aphasia following cerebral infarction; I10 Essential (primary) hypertension; H53.2 Diplopia; I69.341 Monoplegia of lower limb following cerebral infarction affecting right dominant side; R26.81 Unsteadiness on feet; R29.810 Facial weakness; J45.909 Unspecified asthma, uncomplicated; Z79.82 Long term (current) use of aspirin; F17.210 Nicotine dependence, cigarettes, uncomplicated; R47.81 Slurred speech; R79.89 Other specified abnormal findings of blood chemistry; Z23 Encounter for immunization
CPT/HCPCS: 70450; 70553; 80053; 82550; 84484; 85025; 85610; 85730; 90686; 90732; 93005; 93306; 93880; A9579; J7030; Q2038